=== PATIENT | male | born 1950 | race Caucasian/White ===

== ENCOUNTER 2023-05-28 08:30 | Day surgery (SDC) | payer MEDICARE, OTHER ==
[~2023-05-28] VITALS: Ht 170.2 cm; Wt 67.2 kg
[2023-05-28] MEDS ORDERED: propofoL 50 ML IV ONE (08:34)
[2023-05-28] MEDS ORDERED: Lactated Ringer's 1,000 ML IV ONE ×2 (08:34→09:13)
[2023-05-28] MEDS ORDERED: METF500 (08:52)
[2023-05-28] MEDS ORDERED: AMLOATOR (08:52)
[2023-05-28] MEDS ORDERED: OMEP20ER (08:53)
[2023-05-28] MEDS ORDERED: Crestor20 MG (08:53)
[2023-05-28] MEDS ORDERED: SITA100T2 (08:54)
[2023-05-28 09:59] VITALS: BP 112/78
--- NOTE | 2023-05-28 10:09 | NUR ---
05/28/23 1009 Dione Brooks DIVERTICULOSIS/HIGH FIBER DIET PAMPHLET GIVEN TO PT AND FAMILY
== END 2023-05-28 10:10 | disposition home or self-care (01) ==
LOC: ORSCSDS 08:30
PROVIDERS: Specialist
PROC: 0DBN8ZX Excision of Sigmoid Colon, Via Natural or Artificial Opening Endoscopic, Diagnostic (ICD-10-PCS; principal; 2023-05-28 09:45)
DX: Z12.11 Encounter for screening for malignant neoplasm of colon (principal); Z86.010 Personal history of colon polyps; K63.5 Polyp of colon; I10 Essential (primary) hypertension; E11.9 Type 2 diabetes mellitus without complications; Z79.84 Long term (current) use of oral hypoglycemic drugs; Z79.899 Other long term (current) drug therapy
CPT/HCPCS: 82947; 88305; J2704; J7120